=== PATIENT | female | born 2000 | race Caucasian/White ===

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

== ENCOUNTER 2021-07-02 12:25 | Inpatient (IN) ==
[2021-07-02] MEDS ORDERED: Buffered Lidocaine 1% SYRIN 1 ml INTRADERM ONE (12:55)
[2021-07-02] MEDS ORDERED: Lactated Ringers 1000 ml BAG 1,000 ML IV ONE (12:55)
[2021-07-02] MEDS ORDERED: Lactated Ringers 1000 ml BAG 1,000 ML IV SCH ×2 (13:00→17:00)
[2021-07-02 13:56] LABS: Urine Benzodiazepine Screen None Detected (None Detect); Urine Cannabinoids Screen None Detected (None Detect); Urine Opiates Screen None Detected (None Detect)
[2021-07-02] MEDS ORDERED: Witch Hazel PAD JAR TOPICAL PRN (16:22)
[2021-07-02] MEDS ORDERED: Oxytocin 10 UNITS/ML 1 ML VIAL IM ONE (16:22)
[2021-07-02] MEDS ORDERED: Dibucaine 1% OINT 28.35 GM TUBE PR PRN (16:22)
[2021-07-03 06:57] LABS: ABS Eosinophils 0.1 10^3/ul (0-0.6); ABS Lymphocytes 2.5 10^3/ul (1.0-4.8); ABS Monocytes 0.9 10^3/ul (0-0.8); ABS Neutrophils 8.8 10^3/ul (1.5-7.7); Hematocrit 29 % (35-47); Hemoglobin 9.8 g/dL (12.0-16.0); Lymphocyte % 20.3 %; Mean Corpuscular HGB Conc 33 g/dL (31-36); Mean Corpuscular Hemoglobin 27 pg (27-31); Mean Corpuscular Volume 80 fL (80-97); Mean Platelet Volume 8.2 fL (7.4-10.4); Platelet Count 240 10^3/uL (150-450); Red Blood Count 3.67 10^6 /uL (3.70-4.87); Red Cell Distribution Width 14 % (10-15); White Blood Count 12.4 10^3/uL (3.5-10.8)
[2021-07-03 17:37] VITALS: BP 115/61
== END 2021-07-03 18:30 | disposition home or self-care (01) | DRG 560 ==
LOC: MCHOBOUT 12:25 → MCHOB 13:04
PROVIDERS: ADMIT Midwife; ATTEND Midwife

== ENCOUNTER 2022-08-10 21:17 | Inpatient (IN) ==
[2022-08-10] MEDS: Lactated Ringers 1000 ml BAG 1,000 ML IV SCH (21:54)
[2022-08-11] MEDS: oxyCODONE/Acetamin 5/325 mg TAB PO PRN (00:01)
[2022-08-11] MEDS: Ondansetron 4 mg VIAL 2 MG/ML 2 ml VIAL IV PRN ×3 (01:01→10:23)
[2022-08-11] MEDS ORDERED: Naloxone 0.4 mg VIAL 0.4 mg/ml 1 ml VIAL IV PUSH PRN (01:19)
[2022-08-11] MEDS ORDERED: HYDROmorphone PCA 20 MG/20 ML PCA.SYRING PCA SCH (02:00)
[2022-08-11] MEDS ORDERED: Metoclopramide 5 MG/ML VIAL (10 mg) IV SLOW PU ONE (02:49)
[2022-08-11] MEDS: Lactated Ringers 1000 ml BAG 1,000 ML IV SCH ×3 (05:53→19:26)
[2022-08-11 08:02] LABS: ABS Eosinophils 0.1 10^3/ul (0-0.6); ABS Lymphocytes 1.4 10^3/ul (1.0-4.8); ABS Monocytes 0.5 10^3/ul (0-0.8); ABS Neutrophils 8.9 10^3/ul (1.5-7.7); Eosinophil % 0.7 %; Hematocrit 29 % (35-47); Hemoglobin 10.1 g/dL (12.0-16.0); Lymphocyte % 13.3 %; Mean Corpuscular HGB Conc 35 g/dL (31-36); Mean Corpuscular Hemoglobin 31 pg (27-31); Mean Corpuscular Volume 87 fL (80-97); Mean Platelet Volume 8.1 fL (7.4-10.4); Platelet Count 247 10^3/uL (150-450); Red Blood Count 3.29 10^6 /uL (3.70-4.87); Red Cell Distribution Width 13 % (10-15); White Blood Count 10.8 10^3/uL (3.5-10.8)
[2022-08-11 08:12] LABS: Activated Partial Thrombo Time 25.8 seconds (26.0-38.0); INR 1.08 (0.88-1.18)
[2022-08-11 09:54] LABS: Albumin 3.4 g/dL (3.2-5.2); Calcium 8.3 mg/dL (8.6-10.3); Potassium 3.4 mmol/L (3.5-5.0); Total Bilirubin 0.4 mg/dL (0.2-1.0)
[2022-08-11 10:00] LABS: Albumin/Globulin Ratio 1.4 (1-3); Creatinine, Serum 0.49 mg/dL (0.51-0.95); Globulin 2.4 g/dL (2-4); Total Protein 5.8 g/dL (6.4-8.9); eGFR CKD-EPI 137.4 (>60)
[2022-08-11] MEDS ORDERED: OBEPIDURAL (200 ML) 200 ML EPIDURAL ONE (11:05)
[2022-08-11] MEDS ORDERED: fentaNYL 100 mcg/2 ml 50 MCG/ML VIAL ONE (11:05)
[2022-08-11] MEDS ORDERED: Lidocaine 1.5% EPI 1:200,000 30 ML SDV ONE (11:05)
[2022-08-11] MEDS ORDERED: Lactated Ringers 1000 ml BAG 1,000 ML IV ONE (14:06)
[2022-08-11] MEDS ORDERED: Phenylephrine 40 mcg/mL 10mL (400mcg) SYRINGE IV PUSH PRN (14:06)
[2022-08-11] MEDS ORDERED: Sodium Citrate/Citric Acid LIQ 15 ML UDC PO PRN (14:06)
[2022-08-11 14:54] LABS: Urine Appearance Clear; Urine Bilirubin Negative (Negative); Urine Blood Negative (Negative); Urine Color Yellow; Urine Glucose Negative (Negative); Urine Ketones 1+ (Negative); Urine Nitrite Negative (Negative); Urine Protein Negative (Negative); Urine Specific Gravity 1.013 (1.002-1.030); Urine Urobilinogen Negative (Negative)
[2022-08-11] MEDS ORDERED: Bupivacaine 0.25% SDV PF 10 ML VIAL INJ ONE ×2 (18:08→18:09)
[2022-08-11 20:56] LABS: Hematocrit 25 % (35-47); Hemoglobin 8.1 g/dL (12.0-16.0); Mean Corpuscular HGB Conc 33 g/dL (31-36); Mean Corpuscular Hemoglobin 28 pg (27-31); Mean Corpuscular Volume 86 fL (80-97); Red Blood Count 2.86 10^6 /uL (3.70-4.87); Red Cell Distribution Width 13 % (10-15); White Blood Count 10.6 10^3/uL (3.5-10.8)
[2022-08-11 21:16] LABS: Platelet Count 200 10^3/uL (150-450)
[2022-08-11] MEDS ORDERED: Oxytocin in LR 20,000 MILLI.UNIT/1,000 ML BAG IV ONE (21:41)
[2022-08-12] MEDS ORDERED: Bupivacaine 0.25% SDV PF 10 ML VIAL INJ ONE (02:24)
[2022-08-12] MEDS: OBEPIDURAL (200 ML) 200 ML EPIDURAL SCH ×2 (02:26→16:29)
[2022-08-12] MEDS: Phenylephrine 40 mcg/mL 10mL (400mcg) SYRINGE IV PUSH PRN ×2 (02:51→03:08)
[2022-08-12] MEDS: Lactated Ringers 1000 ml BAG 1,000 ML IV SCH ×2 (03:19→11:14)
[2022-08-12 07:01] LABS: Hematocrit 22 % (35-47); Hemoglobin 7.4 g/dL (12.0-16.0); Mean Corpuscular HGB Conc 34 g/dL (31-36); Mean Corpuscular Hemoglobin 30 pg (27-31); Mean Corpuscular Volume 86 fL (80-97); Mean Platelet Volume 7.7 fL (7.4-10.4); Platelet Count 199 10^3/uL (150-450); Red Blood Count 2.51 10^6 /uL (3.70-4.87); Red Cell Distribution Width 13 % (10-15); White Blood Count 7.5 10^3/uL (3.5-10.8)
[2022-08-12] MEDS ORDERED: Lidocaine 2% w/ EPI 1:200,000 MPF 20 ML SDV VIAL ONE (16:26)
[2022-08-12] MEDS ORDERED: Oxytocin in LR 20,000 MILLI.UNIT/1,000 ML BAG IV SCH (18:30)
[2022-08-12] MEDS ORDERED: Methylergonovine 0.2 mg AMPULE 1 ml AMP IM ONE (19:00)
[2022-08-12] MEDS ORDERED: Methylergonovine 0.2 mg AMPULE 1 ml AMP ONE (19:25)
[2022-08-12] MEDS ORDERED: Witch Hazel PAD JAR TOPICAL PRN (19:45)
[2022-08-12] MEDS ORDERED: Dibucaine 1% OINT 28.35 GM TUBE PR PRN (19:45)
[2022-08-12] MEDS ORDERED: Glycerin ADULT 2.4 gm SUPP PR PRN (19:45)
[2022-08-12] MEDS: Ondansetron 4 mg VIAL 2 MG/ML 2 ml VIAL IV PRN (19:46)
[2022-08-12] MEDS ORDERED: Lactated Ringers 1000 ml BAG 1,000 ML IV SCH (20:00)
[2022-08-12] MEDS: oxyCODONE/Acetamin 5/325 mg TAB PO PRN (20:40)
[2022-08-12 23:13] LABS: ABS Lymphocytes 1.2 10^3/ul (1.0-4.8); ABS Monocytes 0.6 10^3/ul (0-0.8); ABS Neutrophils 8.1 10^3/ul (1.5-7.7); Eosinophil % 0.5 %; Hematocrit 31 % (35-47); Hemoglobin 10.4 g/dL (12.0-16.0); Lymphocyte % 11.6 %; Mean Corpuscular HGB Conc 34 g/dL (31-36); Mean Corpuscular Hemoglobin 28 pg (27-31); Mean Corpuscular Volume 84 fL (80-97); Mean Platelet Volume 7.7 fL (7.4-10.4); Nucleated Red Blood Cells % 0.1; Platelet Count 229 10^3/uL (150-450); Red Cell Distribution Width 13 % (10-15); White Blood Count 9.9 10^3/uL (3.5-10.8)
[2022-08-13] MEDS: oxyCODONE/Acetamin 5/325 mg TAB PO PRN (01:02)
[2022-08-13 08:18] VITALS: BP 108/64
== END 2022-08-13 10:00 | disposition home or self-care (01) | DRG 560 ==
LOC: MCHOBOUT 21:17 → MCHOB 08-11 07:37
PROVIDERS: ADMIT Obstetrics & Gynecology; ATTEND Obstetrics & Gynecology